=== PATIENT | female | born 1955 | race African-American/Black ===

== ENCOUNTER 2020-10-26 20:33 | Emergency (ER) | payer BC, OTHER ==
[~2020-10-26] VITALS: Ht 172.7 cm; Wt 83.9 kg
[2020-10-26 20:35] VITALS: BP 159/85
[2020-10-26] MEDS ORDERED: ACET-2605 PO (21:42)
[2020-10-26] MEDS ORDERED: RAMI10CA69 PO (21:42)
[2020-10-26] MEDS ORDERED: METF-440 PO (21:42)
[2020-10-26] MEDS ORDERED: AMLO-213 PO (21:42)
--- NOTE | 2020-10-26 22:10 | NUR ---
Patient discharged to home in stable condition. Written and verbal after care instructions given. Patient verbalizes understanding of instruction. Pt ambulatory with a steady gait
== END 2020-10-26 22:11 | disposition home or self-care (01) ==
LOC: ER 20:37
DX: E11.21 Type 2 diabetes mellitus with diabetic nephropathy (principal); I10 Essential (primary) hypertension; Z76.0 Encounter for issue of repeat prescription; Z79.84 Long term (current) use of oral hypoglycemic drugs; Z79.899 Other long term (current) drug therapy; Z59.0 Homelessness
CPT/HCPCS: 73130-TC; 73630-TC; 82962-TC

== ENCOUNTER 2021-01-13 12:03 | Emergency (ER) | payer BC, OTHER ==
[~2021-01-13] VITALS: Ht 175.3 cm; Wt 83.9 kg
[~2021-01-13 12:03] MED LIST: ACET-2605 PO; AMLO-213 PO; METF-440 PO; RAMI10CA69 PO
[2021-01-13 12:17] VITALS: BP 128/70
[2021-01-13] MEDS ORDERED: HYDR25SU33 RC (14:01)
[2021-01-13] MEDS ORDERED: RAMI10CA69 PO (14:02)
[2021-01-13] MEDS ORDERED: METF-440 PO (14:02)
[2021-01-13] MEDS ORDERED: AMLO-213 PO (14:06)
--- NOTE | 2021-01-13 14:17 | NUR ---
Patient discharged to home in stable condition. Written and verbal after care instructions given. Patient verbalizes understanding of instruction. Pt ambulatory with a steady gait
== END 2021-01-13 14:18 | disposition home or self-care (01) ==
LOC: ER 12:52
DX: K64.9 Unspecified hemorrhoids (principal); Z76.0 Encounter for issue of repeat prescription; E11.9 Type 2 diabetes mellitus without complications; F17.200 Nicotine dependence, unspecified, uncomplicated; Z79.899 Other long term (current) drug therapy; Z79.84 Long term (current) use of oral hypoglycemic drugs

== ENCOUNTER 2021-03-29 11:27 | Emergency (ER) | payer BC, OTHER ==
[~2021-03-29] VITALS: Ht 172.7 cm; Wt 81.6 kg
[~2021-03-29 11:27] MED LIST changes: -ACET-2605 PO; +HYDR25SU33 RC
--- NOTE | 2021-03-29 11:40 | NUR ---
THE PATIENT IS BIBS FOR C/O ANAL ITCHING/BURNING,CAN'T SLEEP AT NIGHT. WILL CONTINUE TO MONITOR THE PATIENT.
--- NOTE | 2021-03-29 11:41 | NUR ---
DR QUINTEROS AT THE BEDSIDE
[2021-03-29] MEDS ORDERED: HYDR25SU33 RC (12:12)
[2021-03-29] MEDS ORDERED: AMLO10TA4 PO (12:37)
[2021-03-29] MEDS ORDERED: METF-440 PO (12:39)
[2021-03-29] MEDS ORDERED: RAMI10CA69 PO (12:39)
--- NOTE | 2021-03-29 12:48 | NUR ---
Patient discharged to home in stable condition. Written and verbal after care instructions given. Patient verbalizes understanding of instruction.
[2021-03-29 12:50] VITALS: BP 148/76
== END 2021-03-29 12:51 | disposition home or self-care (01) ==
LOC: ER 11:35
DX: K64.9 Unspecified hemorrhoids (principal); Z76.0 Encounter for issue of repeat prescription; E11.9 Type 2 diabetes mellitus without complications; F17.200 Nicotine dependence, unspecified, uncomplicated; Z79.899 Other long term (current) drug therapy; Z79.84 Long term (current) use of oral hypoglycemic drugs